=== PATIENT | female | born 1975 | race African-American/Black ===

== ENCOUNTER 2016-06-22 12:26 | Emergency (ER) | payer SELFPAY ==
[2016-06-22] MEDS ORDERED: ASPIRIN 81 MG TABLET, CHEWABLE PO ONE (13:08)
--- NOTE | 2016-06-22 13:17 | ER Document Report ---
ED Medical Screen (RME) - General Chief Complaint: Numbness Stated Complaint: CHEST PAIN Mode of Arrival: Ambulatory Information source: Patient Notes: 41 y/o F presents to ED c/o chest pain, headache, and numbness/tingling to bilateral arms. Reports symptoms started this morning while at [employer]. Denies vision changes, nausea or vomiting, or extremity weakness. I have greeted and performed a rapid initial assessment of this patient. A comprehensive ED assessment and evaluation of the patient, analysis of test results and completion of the medical decision making process will be conducted by additional ED providers. TRAVEL OUTSIDE OF THE [place] IN LAST 30 DAYS: No - Related Data Allergies/Adverse Reactions: codeine [Codeine] Allergy (Intermediate, Verified 06/22/16 13:11) Hives hydrocodone bitartrate [From Vicodin] Allergy (Intermediate, Verified 06/22/16 13:11) Dyspnea hydromorphone HCl [From Dilaudid] Allergy (Intermediate, Verified 06/22/16 13:11 ) Hives morphine [Morphine] Allergy (Intermediate, Verified 06/22/16 13:11) Hives oxycodone HCl [From Percocet] Allergy (Intermediate, Verified 06/22/16 13:11) Hives Shellfish * [Shellfish] Allergy (Unknown, Verified 06/22/16 13:11) Past Medical History - Social History Frequency of alcohol use: None Drug Abuse: None - Past Medical History Cardiac Medical History: Reports: Hx Hypertension Denies: Hx Coronary Artery Disease, Hx Heart Attack Pulmonary Medical History: Reports: Hx Asthma - seasonal Denies: Hx Bronchitis, Hx COPD, Hx Pneumonia Neurological Medical History: Reports: Hx Migraine. Denies: Hx Cerebrovascular Accident, Hx Seizures Endocrine Medical History: Reports: Hx Diabetes Mellitus Type 1, Hx Diabetes Mellitus Type 2 Renal/ Medical History: Denies: Hx Peritoneal Dialysis Musculoskeltal Medical History: Reports Hx Arthritis - RA both hips and knees Psychiatric Medical History: Denies: Hx Depression Past Surgical History: Reports: Hx Section - 2, Hx Cholecystectomy, Hx Gynecologic Surgery - novosure 2009, Hx Orthopedic Surgery - Right knee arthroscopy, Hx Tubal Ligation. 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
[2016-06-22 13:46] LABS: APPEARANCE,URINE SLIGHTLY-CLOUDY; BILIRUBIN,URINE NEGATIVE (NEGATIVE); GLUCOSE, URINE 50 mg/dL (NEGATIVE); KETONES,URINE TRACE mg/dL (NEGATIVE); LEUKOCYTE ESTERASE,URINE NEGATIVE (NEGATIVE); NITRITE,URINE NEGATIVE (NEGATIVE); PROTEIN,URINE >=500 mg/dL (NEGATIVE); URINE SPECIFIC GRAVITY 1.026; UROBILINOGEN,URINE NEGATIVE mg/dL (<2.0)
[2016-06-22 13:55] LABS: ABSOLUTE EOSINOPHILS # (AUTO) 0.1 10^3/uL (0.0-0.6); ABSOLUTE LYMPHOCYTES (AUTO) 2.8 10^3/uL (0.5-4.7); ABSOLUTE MONOCYTES (AUTO) 0.3 10^3/uL (0.1-1.4); ABSOLUTE NEUT (AUTO) 7.1 10^3/uL (1.7-8.2); BASOPHILS % (AUTO) 0.4 % (0-2); EOSINOPHILS % (AUTO) 1.4 % (0-6); HEMATOCRIT 38.5 % (36.0-47.0); HEMOGLOBIN 11.5 g/dL (12.0-15.5); LYMPHOCYTES % (AUTO) 26.5 % (13-45); MEAN CORPUSCULAR HEMOGLOBIN 21.3 pg (27.0-33.4); MEAN CORPUSCULAR VOLUME 71 fl (80-97); MONOCYTES % (AUTO) 3.1 % (3-13); RED BLOOD COUNT 5.43 10^6/uL (3.72-5.28); RED CELL DISTRIBUTION WIDTH 14.7 % (11.5-14.0); SEGMENTED NEUTROPHILS % (AUTO) 68.6 % (42-78); WHITE BLOOD COUNT 10.4 10^3/uL (4.0-10.5)
[2016-06-22 14:15] LABS: ALANINE AMINOTRANSFERASE 33 U/L (9-52); ALBUMIN 3.9 g/dL (3.5-5.0); ALKALINE PHOSPHATASE 111 U/L (38-126); ANION GAP 12 (5-19); ASPARTATE AMINO TRANSFERASE 28 U/L (14-36); BILIRUBIN,TOTAL 0.7 mg/dL (0.2-1.3); BLOOD UREA NITROGEN 12 mg/dL (7-20); CALCIUM 9.5 mg/dL (8.4-10.2); CARBON DIOXIDE 25 mmol/L (22-30); CHLORIDE 101 mmol/L (98-107); CREATINE KINASE 71 U/L (30-135); CREATININE RESULT 0.79 mg/dL (0.52-1.25); GLUCOSE 306 mg/dL (75-110); POTASSIUM 3.9 mmol/L (3.6-5.0); TOTAL PROTEIN 6.8 g/dL (6.3-8.2)
--- NOTE | 2016-06-22 14:29 | ER Document Report ---
ED General - General Chief Complaint: Chest Pain Stated Complaint: CHEST PAIN Mode of Arrival: Ambulatory Information source: Patient Notes: Patient presents to the emergency department with complaints of right shoulder right-sided chest pain that started yesterday. She reports she woke up to a a headache and a feeling of numbness and tingling to her right shoulder. She reports she had right-sided sharp chest pain and the center of her chest felt tight. She also reports she felt weak and nauseated. She reports diarrhea yesterday all day. She reports she's been eating drinking okay. She denies trauma. She denies fever and vomiting. Patient with history of high blood pressure asthma diabetes denies cardiac disease,obesity. TRAVEL OUTSIDE OF THE [place] IN LAST 30 DAYS: No - HPI Onset: Yesterday Onset/Duration: Sudden, Persistent Quality of pain: Achy, Sharp Severity: Severe Pain Level: 5 Associated symptoms: Diarrhea, Nausea Exacerbated by: Movement Relieved by: Denies Similar symptoms previously: No Recently seen / treated by doctor: No - Related Data Allergies/Adverse Reactions: codeine [Codeine] Allergy (Intermediate, Verified 06/22/16 13:11) Hives hydrocodone bitartrate [From Vicodin] Allergy (Intermediate, Verified 06/22/16 13:11) Dyspnea hydromorphone HCl [From Dilaudid] Allergy (Intermediate, Verified 06/22/16 13:11 ) Hives morphine [Morphine] Allergy (Intermediate, Verified 06/22/16 13:11) Hives oxycodone HCl [From Percocet] Allergy (Intermediate, Verified 06/22/16 13:11) Hives Shellfish * [Shellfish] Allergy (Unknown, Verified 06/22/16 13:11) Past Medical History - General Information source: Patient Last Menstrual Period: 05/31/16 - Social History Smoking Status: Never Smoker Frequency of alcohol use: None Drug Abuse: None Lives with: Family Family History: Reviewed & Not Pertinent Patient has suicidal ideation: No Patient has homicidal ideation: No - Past Medical History Cardiac Medical History: Reports: Hx Hypertension Denies: Hx Coronary Artery Disease, Hx Heart Attack Pulmonary Medical History: Reports: Hx Asthma - seasonal Denies: Hx Bronchitis, Hx COPD, Hx Pneumonia Neurological Medical History: Reports: Hx Migraine. Denies: Hx Cerebrovascular Accident, Hx Seizures Endocrine Medical History: Reports: Hx Diabetes Mellitus Type 1, Hx Diabetes Mellitus Type 2 Renal/ Medical History: Denies: Hx Peritoneal Dialysis Musculoskeltal Medical History: Reports Hx Arthritis - RA both hips and knees Psychiatric Medical History: Denies: Hx Depression Past Surgical History: Reports: Hx Section - 2, Hx Cholecystectomy, Hx Gynecologic Surgery - novosure 2010, Hx Orthopedic Surgery - Right knee arthroscopy, Hx Tubal Ligation. Denies: Hx Hysterectomy - Immunizations Immunizations up to date: Yes Hx Diphtheria, Pertussis, Tetanus Vaccination: Yes Hx Pneumococcal Vaccination: 03/01/12 Review of Systems - Review of Systems Notes: Review HPI for review of systems., All other systems negative Physical Exam - Vital signs Vitals: Temp Pulse Resp BP Pulse Ox 98.0 F 102 H 19 151/85 H 98 06/22/16 12:51 06/22/16 12:51 06/22/16 12:51 06/22/16 12:51 06/22/16 12:51 - Notes Notes: PHYSICAL EXAMINATION: GENERAL: Well-appearing and in no acute distress nontoxic looking HEAD: Atraumatic, normocephalic. EYES: Pupils equal round extraocular movements intact, sclera anicteric, conjunctiva are normal. ENT: nares patent, oropharynx clear without exudates. Moist mucous membranes. NECK: Normal range of motion, supple without lymphadenopathy LUNGS: CTAB and equal. No wheezes rales or rhonchi. HEART: Regular rate and rhythm without murmurs denies chest wall ttp on right side, denies left side cp ABDOMEN: Soft, no tenderness. No guarding, no rebound BACK: C/O Right trapezius ttp right side down to midback, no obvious deformity, no swelling/warmth EXTREMITIES: Normal range of motion, no pitting edema. No cyanosis. right shoulder ac area ttp, no erythema,no swelling, no obvious deformity NEUROLOGICAL: Cranial nerves grossly intact. Normal sensory/motor exams. PSYCH: Normal mood, normal affect. SKIN: Warm, Dry, normal turgor, no rashes or lesions noted Course - Re-evaluation Re-evalutation: 06/22/16 17:32 I have consulted the attending provider dr gamez per [facility] guidelines. Patient feels good. Reports shoulder feels much better. Denies chest pain denies shortness of breath. Patient does not history of PE or DVTs. Patient will be discharged home with pain medication and follow-up with Dr. Flowers tomorrow. Presentation of right side chest pain ttp, right side trapezius ttp, No recent trip, no hx of DVT/PE. Chest x-ray without evidence of pneumothorax or pneumonia. No widened mediastinum. Inferior dissection also seems unlikely given history, symmetric pulses, chest x-ray and vitals. Given the reassuring evaluation, will plan for discharge home at this time with return precautions and follow-up recommendations. Patient has been instructed to return if symptoms worsen or change in any way. Patient plans follow-up with Dr. Flowers tomorrow. - Vital Signs Vital signs: Temp Pulse Resp BP Pulse Ox 98.1 F 102 H 16 146/87 H 100 06/22/16 17:49 06/22/16 12:51 06/22/16 17:29 06/22/16 17:29 06/22/16 17:29 - Laboratory Result Diagrams: 06/22/16 13:18 06/22/16 13:18 Laboratory results interpreted by me: 06/22/16 06/22/16 06/22/16 13:18 13:18 13:18 RBC 5.43 H Hgb 11.5 L MCV 71 L MCH 21.3 L MCHC 30.0 L RDW 14.7 H Glucose 306 H Urine Protein >=500 H Urine Glucose (UA) 50 H Urine Ketones TRACE H - Diagnostic Test Radiology reviewed: Image reviewed, Reports reviewed - Negative for acute injury - EKG Interpretation by Me Rate: Tachycardia Discharge - Discharge Clinical Impression: chest wall pain, elevated blood pressure, RIght side trapezius pain Condition: Stable Disposition: HOME, SELF-CARE Instructions: Chest Wall Pain ([facility]), Oral Narcotic Medication ([facility]), Upper Back Strain ([facility]) Additional Instructions: *You have been evaluated for chest wall pain, trapezius pain, elevated blood pressure *Take Benadryl as indicated *Take medication as prescribed *Follow up with a primary care provider tomorrow *Return to ED for worsening condition, changes, needs, chest pain, shortness of breath Prescriptions: Oxycodone HCl/Acetaminophen [Percocet 5-325 mg Tablet] 1 tab PO ASDIR PRN #15 tablet PRN Reason: Forms: Return to Work
[2016-06-22 14:32] LABS: CREATINE KINASE MB 0.97 ng/mL (<4.55); TROPONIN I < 0.012 ng/mL
[2016-06-22] MEDS ORDERED: DIPHENHYDRAMINE HCL 25 MG CAPSULE PO ONE (15:42)
[2016-06-22] MEDS ORDERED: OXYCODONE-ACETAMINOPHEN 5-325 MG TABLET PO ONE (15:42)
[2016-06-22] MEDS ORDERED: METFORMIN HCL 500 MG TABLET PO ONE (17:17)
[2016-06-22 17:31] VITALS: BP 146/87
--- NOTE | 2016-06-22 20:36 | EKG REPORT ---
SEVERITY:- BORDERLINE ECG - SINUS TACHYCARDIA BORDERLINE R WAVE PROGRESSION, ANTERIOR LEADS BORDERLINE T ABNORMALITIES, DIFFUSE LEADS : Confirmed by: Quique Bustamante MD 22-Jun-2016 20:35:30
== END 2016-06-22 17:49 | disposition home or self-care (01) ==
LOC: ER 12:26
DX: R07.89 Other chest pain (principal); M79.1 Myalgia; I10 Essential (primary) hypertension; R51 Headache; R20.0 Anesthesia of skin; R53.1 Weakness; R11.0 Nausea; R19.7 Diarrhea, unspecified; J45.909 Unspecified asthma, uncomplicated; E11.9 Type 2 diabetes mellitus without complications; Z88.5 Allergy status to narcotic agent; Z91.013 Allergy to seafood
CPT/HCPCS: 36415; 71020; 80053; 81001; 82550; 82553; 84484; 84703; 85025; 93005; 93010; 99285

== ENCOUNTER 2016-08-05 20:50 | Emergency (ER) | payer OTHER ==
--- NOTE | 2016-08-05 21:28 | ER Document Report ---
ED Medical Screen (RME) - General Stated Complaint: VOMITING DIZZY Time seen by provider: 21:23 Mode of Arrival: Ambulatory Information source: Patient Notes: 41-year-old type II diabetic female complaining of nosebleeds when she blows her nose since Thursday. She started getting vertigo yesterday, vomited 4 times, and Thursday/Thursday felt like her body got really hot. No anticoagulants. LMP . I have greeted and performed a rapid initial assessment of this patient. A comprehensive ED assessment, evaluation of the patient, analysis of test results , and completion of the medical decision making process will be conducted by additional ED providers. TRAVEL OUTSIDE OF THE [place] IN LAST 30 DAYS: No - Related Data Allergies/Adverse Reactions: codeine [Codeine] Allergy (Intermediate, Verified 06/22/16 13:11) Hives hydrocodone bitartrate [From Vicodin] Allergy (Intermediate, Verified 06/22/16 13:11) Dyspnea hydromorphone HCl [From Dilaudid] Allergy (Intermediate, Verified 06/22/16 13:11 ) Hives morphine [Morphine] Allergy (Intermediate, Verified 06/22/16 13:11) Hives oxycodone HCl [From Percocet] Allergy (Intermediate, Verified 06/22/16 13:11) Hives Shellfish * [Shellfish] Allergy (Unknown, Verified 06/22/16 13:11) Past Medical History - Past Medical History Cardiac Medical History: Reports: Hx Hypertension Denies: Hx Coronary Artery Disease, Hx Heart Attack Pulmonary Medical History: Reports: Hx Asthma - seasonal Denies: Hx Bronchitis, Hx COPD, Hx Pneumonia Neurological Medical History: Reports: Hx Migraine. Denies: Hx Cerebrovascular Accident, Hx Seizures Endocrine Medical History: Reports: Hx Diabetes Mellitus Type 1, Hx Diabetes Mellitus Type 2 Renal/ Medical History: Denies: Hx Peritoneal Dialysis Musculoskeltal Medical History: Reports Hx Arthritis - RA both hips and knees Psychiatric Medical History: Denies: Hx Depression Past Surgical History: Reports: Hx Section - 2, Hx Cholecystectomy, Hx Gynecologic Surgery - novosure 2009, Hx Orthopedic Surgery - Right knee arthroscopy, Hx Tubal Ligation. Denies: Hx Hysterectomy - Immunizations Immunizations up to date: Yes Hx Diphtheria, Pertussis, Tetanus Vaccination: Yes Physical Exam - Vital signs Vitals: Temp Pulse Resp BP Pulse Ox 98.0 F 96 18 170/82 H 100 08/05/16 21:13 08/05/16 21:13 08/05/16 21:13 08/05/16 21:13 08/05/16 21:13 Course - Vital Signs Vital signs: Temp Pulse Resp BP Pulse Ox 98.0 F 96 18 170/82 H 100 08/05/16 21:13 08/05/16 21:13 08/05/16 21:13 08/05/16 21:13 08/05/16 21:13
[2016-08-05] MEDS ORDERED: MECLIZINE HCL 25 MG TABLET PO ONE (21:29)
[2016-08-05 21:49] LABS: ABSOLUTE EOSINOPHILS # (AUTO) 0.1 10^3/uL (0.0-0.6); ABSOLUTE MONOCYTES (AUTO) 0.6 10^3/uL (0.1-1.4); ABSOLUTE NEUT (AUTO) 7.9 10^3/uL (1.7-8.2); BASOPHILS % (AUTO) 0.4 % (0-2); EOSINOPHILS % (AUTO) 1.3 % (0-6); HEMATOCRIT 35.9 % (36.0-47.0); HEMOGLOBIN 11.3 g/dL (12.0-15.5); LYMPHOCYTES % (AUTO) 25.9 % (13-45); MEAN CORPUSCULAR HEMOGLOBIN 21.7 pg (27.0-33.4); MEAN CORPUSCULAR HGB CONC 31.4 g/dL (32.0-36.0); MEAN CORPUSCULAR VOLUME 69 fl (80-97); MONOCYTES % (AUTO) 4.8 % (3-13); RED BLOOD COUNT 5.19 10^6/uL (3.72-5.28); RED CELL DISTRIBUTION WIDTH 13.6 % (11.5-14.0); SEGMENTED NEUTROPHILS % (AUTO) 67.6 % (42-78); WHITE BLOOD COUNT 11.7 10^3/uL (4.0-10.5)
[2016-08-05 21:55] LABS: PARTIAL THROMBOPLASTIN TIME 28.3 SEC (23.5-35.8); PROTHROMBIN TIME 12.3 SEC (11.4-15.4)
[2016-08-05 22:09] LABS: ALANINE AMINOTRANSFERASE 28 U/L (9-52); ALBUMIN 3.9 g/dL (3.5-5.0); ALKALINE PHOSPHATASE 128 U/L (38-126); ANION GAP 12 (5-19); ASPARTATE AMINO TRANSFERASE 22 U/L (14-36); BILIRUBIN,TOTAL 0.6 mg/dL (0.2-1.3); BLOOD UREA NITROGEN 12 mg/dL (7-20); CALCIUM 9.5 mg/dL (8.4-10.2); CARBON DIOXIDE 25 mmol/L (22-30); CHLORIDE 96 mmol/L (98-107); CREATININE RESULT 0.78 mg/dL (0.52-1.25); POTASSIUM 4.8 mmol/L (3.6-5.0); SODIUM 133.2 mmol/L (137-145); TOTAL PROTEIN 6.9 g/dL (6.3-8.2)
[2016-08-05 22:18] LABS: GLUCOSE 425 mg/dL (75-110)
[2016-08-06] MEDS ORDERED: INSULIN LISPRO 100 UNIT/ML 3 ML VIAL SUBCUT ONE (00:09)
[2016-08-06] MEDS ORDERED: OXYMETAZOLINE HCL 0.05% NASAL SPRAY 15 ML BOTTLE NASL ONE (01:09)
--- NOTE | 2016-08-06 01:13 | ER Document Report ---
ED General - General Chief Complaint: Dizziness Stated Complaint: VOMITING DIZZY Mode of Arrival: Ambulatory Notes: Patient is a 41-year-old female with past medical history of poorly controlled diabetes, hypertension, morbid obesity who presents with complaints of 3 days of intermittent epistaxis as well as bilateral sinus pressure. She notes she's also had multiple episodes of nonbilious, nonbloody vomiting particularly after episodes of epistaxis. She is not currently having a nosebleed at time of presentation. She has not tried anything to treat her symptoms and has not noted anything worsen her symptoms. She does not use anticoagulation. She denies a history of similar symptoms in the past. She has not seen her primary care physician regarding today's concerns. Her symptoms have been relatively unchanged since onset. TRAVEL OUTSIDE OF THE [place] IN LAST 30 DAYS: No - Related Data Allergies/Adverse Reactions: codeine [Codeine] Allergy (Intermediate, Verified 06/22/16 13:11) Hives hydrocodone bitartrate [From Vicodin] Allergy (Intermediate, Verified 06/22/16 13:11) Dyspnea hydromorphone HCl [From Dilaudid] Allergy (Intermediate, Verified 06/22/16 13:11 ) Hives morphine [Morphine] Allergy (Intermediate, Verified 06/22/16 13:11) Hives oxycodone HCl [From Percocet] Allergy (Intermediate, Verified 06/22/16 13:11) Hives Shellfish * [Shellfish] Allergy (Unknown, Verified 06/22/16 13:11) Past Medical History - General Information source: Patient - Social History Smoking Status: Never Smoker Chew tobacco use (# tins/day): No Frequency of alcohol use: None Drug Abuse: None Lives with: Spouse/Significant other Family History: Reviewed & Not Pertinent Patient has suicidal ideation: No Patient has homicidal ideation: No - Past Medical History Cardiac Medical History: Reports: Hx Hypertension Denies: Hx Coronary Artery Disease, Hx Heart Attack Pulmonary Medical History: Reports: Hx Asthma - seasonal Denies: Hx Bronchitis, Hx COPD, Hx Pneumonia Neurological Medical History: Reports: Hx Migraine. Denies: Hx Cerebrovascular Accident, Hx Seizures Endocrine Medical History: Reports: Hx Diabetes Mellitus Type 1, Hx Diabetes Mellitus Type 2 Renal/ Medical History: Denies: Hx Peritoneal Dialysis Musculoskeltal Medical History: Reports Hx Arthritis - RA both hips and knees Psychiatric Medical History: Denies: Hx Depression Past Surgical History: Reports: Hx Section - 2, Hx Cholecystectomy, Hx Gynecologic Surgery - novosure 2010, Hx Orthopedic Surgery - Right knee arthroscopy, Hx Tubal Ligation. Denies: Hx Hysterectomy - Immunizations Immunizations up to date: Yes Hx Diphtheria, Pertussis, Tetanus Vaccination: Yes Hx Pneumococcal Vaccination: 03/01/12 Review of Systems - Review of Systems Notes: Constitutional: Negative for fever. HENT: Negative for sore throat. Positive for epistaxis Eyes: Negative for visual changes. Cardiovascular: Negative for chest pain. Respiratory: Negative for shortness of breath. Gastrointestinal: Negative for abdominal pain, positive for vomiting Genitourinary: Negative for dysuria. Musculoskeletal: Negative for back pain. Skin: Negative for rash. Neurological: Negative for headaches, weakness or numbness. 10 point ROS negative except as marked above and in HPI. Physical Exam - Vital signs Vitals: Temp Pulse Resp BP Pulse Ox 98.0 F 96 18 170/82 H 100 08/05/16 21:13 08/05/16 21:13 08/05/16 21:13 08/05/16 21:13 08/05/16 21:13 Interpretation: Hypertensive Notes: PHYSICAL EXAMINATION: GENERAL: Well-appearing, well-nourished and in no acute distress. HEAD: Atraumatic, normocephalic. EYES: Pupils equal round and reactive to light, extraocular movements intact, sclera anicteric, conjunctiva are normal. ENT: nares patent, oropharynx clear without exudates. Moist mucous membranes. NECK: Normal range of motion, supple without lymphadenopathy LUNGS: Breath sounds clear to auscultation bilaterally and equal. No wheezes rales or rhonchi. HEART: Regular rate and rhythm without murmurs ABDOMEN: Soft, nontender, normoactive bowel sounds. No guarding, no rebound. No masses appreciated. EXTREMITIES: Normal range of motion, no pitting or edema. No cyanosis. NEUROLOGICAL: No focal neurological deficits. Moves all extremities spontaneously and on command. PSYCH: Normal mood, normal affect. SKIN: Warm, Dry, normal turgor, no rashes or lesions noted. Course - Re-evaluation Re-evalutation: 08/06/16 01:10 Patient presents with concerns of intermittent nosebleed, sinus congestion, and several episodes of vomiting over the last 3 days. Patient is very well in appearance, no acute distress. Vitals at time of triage show patient's baseline hypertension but otherwise unremarkable. Her CBC shows that her hemoglobin is at her baseline. Chemistry obtained in triage demonstrates hyperglycemia without evidence of diabetic ketoacidosis and likewise is very similar to patient's blood glucose when she comes to the emergency department on prior occasions. Her physical examination is unremarkable without any significant nasal turbinate erythema. There is no active nosebleed at this time. The oropharynx is clear. Suspect the patient's intermittent nosebleeds may be due to the weather versus her recent sinus infection and I suspect her vomiting is due to swallowing blood as she states that her vomiting typically occurs after an episode of a nosebleed. Her abdominal exam is completely benign without any focal tenderness rebound or guarding. I do not suspect an acute bowel obstruction, mesenteric ischemia, pancreatitis, or biliary pathology based on her exam and history. She will be given a bottle oxymetazoline to use at home as needed for feelings of sinus congestion and intermittent small amounts of bleeding. At this time will discharge with return precautions and follow-up recommendations. Verbal discharge instructions given a the bedside and opportunity for questions given. Medication warnings reviewed. Patient is in agreement with this plan and has verbalized understanding of return precautions and the need for primary care follow-up in the next 24-72 hours. - Vital Signs Vital signs: Temp Pulse Resp BP Pulse Ox 97.6 F 90 16 147/83 H 100 08/06/16 01:38 08/06/16 01:38 08/06/16 01:38 08/06/16 01:38 08/06/16 01:38 - Laboratory Result Diagrams: 08/05/16 21:30 08/05/16 21:30 Laboratory results interpreted by me: 08/05/16 08/05/16 08/06/16 21:30 21:30 01:31 WBC 11.7 H Hgb 11.3 L Hct 35.9 L MCV 69 L MCH 21.7 L MCHC 31.4 L Sodium 133.2 L Chloride 96 L Glucose 425 H* POC Glucose 377 H Alkaline Phosphatase 128 H Discharge - Discharge Clinical Impression: Poorly controlled diabetes mellitus, Epistaxis, recurrent HTN (hypertension) Qualifiers: Hypertension type: essential hypertension Qualified Code(s): I10 - Essential ( primary) hypertension Condition: Good Disposition: HOME, SELF-CARE Additional Instructions: Please follow-up with your primary care doctor regarding her blood sugars as well as her blood pressure is both were elevated today. Use the oxymetazoline nasal spray that she were sent home with as needed for a nosebleed and sinus congestion. Please do not use for more than 3 days.Please return to the emergency room immediately if you experience any concerning symptoms including high fevers, severe headache, chest pain, difficulty breathing, abdominal pain, slurred speech, numbness or weakness in your arms or legs, or any other symptom that concerns you. Forms: Return to Work Referrals: CAROLYN CHANG MD [Primary Care Provider] - Follow up in 3-5 days
[2016-08-06 01:38] VITALS: BP 147/83
== END 2016-08-06 01:38 | disposition home or self-care (01) ==
LOC: ER 20:50
DX: E11.65 Type 2 diabetes mellitus with hyperglycemia (principal); R04.0 Epistaxis; I10 Essential (primary) hypertension; E66.01 Morbid (severe) obesity due to excess calories; Z68.41 Body mass index [BMI] 40.0-44.9, adult; R11.10 Vomiting, unspecified; J45.909 Unspecified asthma, uncomplicated; R09.81 Nasal congestion; Z88.5 Allergy status to narcotic agent; Z91.013 Allergy to seafood
CPT/HCPCS: 99284; 36415; 82962; 84703; 85025; 85610; 85730; 80053; J3490

== ENCOUNTER 2016-09-02 18:34 | Emergency (ER) | payer OTHER ==
--- NOTE | 2016-09-02 19:50 | ER Document Report ---
ED Medical Screen (RME) - General Mode of Arrival: Ambulatory Information source: Patient TRAVEL OUTSIDE OF THE [place] IN LAST 30 DAYS: No - HPI Patient complains to provider of: Left leg pain and swelling Onset: Other - "couple weeks ago" Associated Symptoms: Other - see notes above <ANGELA LASSITER - Last Filed: 09/02/16 20:12> <MARILIN ZEE - Last Filed: 09/02/16 20:28> - General Chief Complaint: Leg Swelling Stated Complaint: LEFT LEG PROBLEMS Notes: 41 year old female with history of diabetes type II presents to the ED complaining of left leg "burning" pain and swelling that started "a couple weeks ago." Patient reports that the pain and swelling started out as a small "black" dot and has progressively gotten worse. Patient denies hitting her leg on anything or any new medications. Patient's primary care provider is Dr. Flowers. (ANGELA LASSITER) - Related Data Allergies/Adverse Reactions: codeine [Codeine] Allergy (Intermediate, Verified 09/02/16 19:43) Hives hydrocodone bitartrate [From Vicodin] Allergy (Intermediate, Verified 09/02/16 19:43) Dyspnea hydromorphone HCl [From Dilaudid] Allergy (Intermediate, Verified 09/02/16 19:43 ) Hives morphine [Morphine] Allergy (Intermediate, Verified 09/02/16 19:43) Hives oxycodone HCl [From Percocet] Allergy (Intermediate, Verified 09/02/16 19:43) Hives Shellfish * [Shellfish] Allergy (Unknown, Verified 09/02/16 19:43) Past Medical History - General Information source: Patient - Past Medical History Cardiac Medical History: Reports: Hx Hypertension Pulmonary Medical History: Reports: Hx Asthma - seasonal Neurological Medical History: Reports: Hx Migraine Endocrine Medical History: Reports: Hx Diabetes Mellitus Type 1, Hx Diabetes Mellitus Type 2 Renal/ Medical History: Denies: Hx Peritoneal Dialysis Musculoskeltal Medical History: Reports Hx Arthritis - RA both hips and knees Past Surgical History: Reports: Hx Section - 2, Hx Cholecystectomy, Hx Gynecologic Surgery - novosure 2010, Hx Orthopedic Surgery - Right knee arthroscopy, Hx Tubal Ligation - Immunizations Immunizations up to date: Yes Hx Diphtheria, Pertussis, Tetanus Vaccination: Yes <ANGELA LASSITER - Last Filed: 09/02/16 20:12> Review of Systems - Review of Systems Constitutional: No symptoms reported EENT: No symptoms reported Cardiovascular: No symptoms reported Respiratory: No symptoms reported Gastrointestinal: No symptoms reported Genitourinary: No symptoms reported Female Genitourinary: No symptoms reported Musculoskeletal: See HPI, Other - left leg pain and swelling Skin: No symptoms reported Hematologic/Lymphatic: No symptoms reported Neurological/Psychological: No symptoms reported -: Yes All other systems reviewed and negative <PATTI LASSITERUR - Last Filed: 09/02/16 20:12> Physical Exam - General General appearance: Alert In distress: None - Respiratory Respiratory status: No respiratory distress - Extremities General upper extremity: Normal inspection, Normal ROM General lower extremity: Normal ROM. No: Normal inspection - see leg calf exam below Calf: Tender - mild tenderness to palpation of the left calf, Other - Left leg swelling with mild erythema on the lateral aspect.. No: Normal <LASSITERANGELA - Last Filed: 09/02/16 20:12> Course - Laboratory Result Diagrams: 09/02/16 19:55 09/02/16 19:55 <LASSITERANGELA - Last Filed: 09/02/16 20:12> - Laboratory Result Diagrams: 09/02/16 19:55 09/02/16 19:55 <MARILIN ZEE - Last Filed: 09/02/16 20:28> - Re-evaluation Re-evalutation: 09/02/16 20:28 I personally performed the services described in the documentation, reviewed and edited the documentation which was dictated to the scribe in my presence, and it accurately records my words and actions. (MARILIN ZEE) - Vital Signs Vital signs: Temp Pulse Resp BP Pulse Ox 98.3 F 95 18 187/95 H 99 09/02/16 18:41 09/02/16 18:41 09/02/16 18:41 09/02/16 18:41 09/02/16 18:41 - Laboratory Laboratory results interpreted by me: 09/02/16 19:55 WBC 11.5 H Hgb 10.4 L Hct 34.1 L MCV 70 L MCH 21.3 L MCHC 30.6 L Scribe Documentation - Scribe Written by Flor:: Flor Bourne, 09/02/2016 2020 acting as scribe for :: Solo <ANGELA LASSITER - Last Filed: 09/02/16 20:12>
[2016-09-02 20:08] LABS: ABSOLUTE EOSINOPHILS # (AUTO) 0.2 10^3/uL (0.0-0.6); ABSOLUTE LYMPHOCYTES (AUTO) 3.5 10^3/uL (0.5-4.7); ABSOLUTE MONOCYTES (AUTO) 0.5 10^3/uL (0.1-1.4); ABSOLUTE NEUT (AUTO) 7.3 10^3/uL (1.7-8.2); BASOPHILS % (AUTO) 0.3 % (0-2); EOSINOPHILS % (AUTO) 1.6 % (0-6); HEMATOCRIT 34.1 % (36.0-47.0); HEMOGLOBIN 10.4 g/dL (12.0-15.5); HGB HCT DIFFERENCE -2.9; LYMPHOCYTES % (AUTO) 30.2 % (13-45); MEAN CORPUSCULAR HEMOGLOBIN 21.3 pg (27.0-33.4); MEAN CORPUSCULAR HGB CONC 30.6 g/dL (32.0-36.0); MEAN CORPUSCULAR VOLUME 70 fl (80-97); MONOCYTES % (AUTO) 4.1 % (3-13); RED BLOOD COUNT 4.91 10^6/uL (3.72-5.28); RED CELL DISTRIBUTION WIDTH 13.8 % (11.5-14.0); SEGMENTED NEUTROPHILS % (AUTO) 63.8 % (42-78); WHITE BLOOD COUNT 11.5 10^3/uL (4.0-10.5)
[2016-09-02] MEDS ORDERED: CARISOPRODOL 350 MG TABLET PO ONE (20:19)
[2016-09-02 20:28] LABS: ANION GAP 13 (5-19); BLOOD UREA NITROGEN 13 mg/dL (7-20); C-REACTIVE PROTEIN 19.5 mg/L (<10.0); CARBON DIOXIDE 24 mmol/L (22-30); CHLORIDE 102 mmol/L (98-107); CREATININE RESULT 0.72 mg/dL (0.52-1.25); SODIUM 138.6 mmol/L (137-145)
[2016-09-02 20:36] LABS: CALCIUM 9.4 mg/dL (8.4-10.2); GLUCOSE 199 mg/dL (75-110); POTASSIUM 4.2 mmol/L (3.6-5.0)
[2016-09-02 20:44] LABS: ERYTHROCYTE SEDIMENTATION RATE 39 mm/hr (0-20)
[2016-09-03] MEDS ORDERED: CARISOPRODOL 350 MG TABLET PO ONE (00:15)
[2016-09-03] MEDS ORDERED: OXYCODONE-ACETAMINOPHEN 5-325 MG TABLET PO ONE (00:51)
[2016-09-03] MEDS ORDERED: DIPHENHYDRAMINE HCL 25 MG CAPSULE PO ONE (00:51)
[2016-09-03] MEDS ORDERED: CEPHALEXIN 500 MG CAPSULE PO ONE (01:15)
--- NOTE | 2016-09-03 01:16 | ER Document Report ---
ED General - General Chief Complaint: Leg Swelling Stated Complaint: LEFT LEG PROBLEMS Mode of Arrival: Ambulatory Information source: Patient Notes: Patient presents to the emergency department with left lower leg swelling erythema and pain. She reports symptoms for the past 3 weeks. She reports pain turned into burning today. Patient is a diabetic with a past medical history of DVT. She denies trauma to the area. She reports she noted a dark spot to the leg approximately 2 weeks ago and then just recently started turning red. She denies fever vomiting diarrhea. She reports the leg is very painful. She reports when she wakes up after sleeping all night the leg is not as swollen. After she supple date the leg swells more. TRAVEL OUTSIDE OF THE [place] IN LAST 30 DAYS: No - HPI Onset: Other - 3 weeks Onset/Duration: Persistent Quality of pain: Achy, Burning Severity: Severe Pain Level: 5 Associated symptoms: Leg swelling Exacerbated by: Denies Relieved by: Other - better after sleep Similar symptoms previously: Yes Recently seen / treated by doctor: No - Related Data Allergies/Adverse Reactions: codeine [Codeine] Allergy (Intermediate, Verified 09/02/16 19:43) Hives hydrocodone bitartrate [From Vicodin] Allergy (Intermediate, Verified 09/02/16 19:43) Dyspnea hydromorphone HCl [From Dilaudid] Allergy (Intermediate, Verified 09/02/16 19:43 ) Hives morphine [Morphine] Allergy (Intermediate, Verified 09/02/16 19:43) Hives oxycodone HCl [From Percocet] Allergy (Intermediate, Verified 09/02/16 19:43) Hives Shellfish * [Shellfish] Allergy (Unknown, Verified 09/02/16 19:43) Past Medical History - General Information source: Patient Last Menstrual Period: 08/04/16 - Social History Smoking Status: Unknown if Ever Smoked Chew tobacco use (# tins/day): No Frequency of alcohol use: Rare Drug Abuse: None Occupation: bank Lives with: Family Family History: Reviewed & Not Pertinent Patient has suicidal ideation: No Patient has homicidal ideation: No - Past Medical History Cardiac Medical History: Reports: Hx Hypertension Denies: Hx Coronary Artery Disease, Hx Heart Attack Pulmonary Medical History: Reports: Hx Asthma - seasonal Denies: Hx Bronchitis, Hx COPD, Hx Pneumonia Neurological Medical History: Reports: Hx Migraine. Denies: Hx Cerebrovascular Accident, Hx Seizures Endocrine Medical History: Reports: Hx Diabetes Mellitus Type 1, Hx Diabetes Mellitus Type 2 Renal/ Medical History: Denies: Hx Peritoneal Dialysis Musculoskeltal Medical History: Reports Hx Arthritis - RA both hips and knees Psychiatric Medical History: Denies: Hx Depression Past Surgical History: Reports: Hx Section - 2, Hx Cholecystectomy, Hx Gynecologic Surgery - novosure 2010, Hx Orthopedic Surgery - Right knee arthroscopy, Hx Tubal Ligation. Denies: Hx Hysterectomy - Immunizations Immunizations up to date: Yes Hx Diphtheria, Pertussis, Tetanus Vaccination: Yes Hx Pneumococcal Vaccination: 03/01/12 Review of Systems - Review of Systems Notes: Review HPI for review of systems., All other systems negative Physical Exam - Vital signs Vitals: Temp Pulse Resp BP Pulse Ox 98.3 F 95 18 187/95 H 99 09/02/16 18:41 09/02/16 18:41 09/02/16 18:41 09/02/16 18:41 09/02/16 18:41 - Notes Notes: PHYSICAL EXAMINATION: GENERAL: Well-appearing and in no acute distress HEAD: Atraumatic, normocephalic. EYES: Pupils equal round and reactive to light, extraocular movements intact, sclera anicteric, conjunctiva are normal. ENT: nares patent, oropharynx clear without exudates. Moist mucous membranes. NECK: Normal range of motion, supple without lymphadenopathy LUNGS: CTAB and equal. No wheezes rales or rhonchi. HEART: Regular rate and rhythm without murmurs ABDOMEN: Soft, no tenderness. No guarding, no rebound EXTREMITIES: Normal range of motion, LLL swelling, tight, erythema anterior, + pedal pulse, + popliteal pulse NEUROLOGICAL: Cranial nerves grossly intact. Normal sensory/motor exams. PSYCH: Normal mood, normal affect. SKIN: Warm, Dry, normal turgor, no rashes or lesions noted - Abdominal Adult front & back diagram: 1 - +erythema, no open sores/wounds 2 - leg swelling, tight Course - Re-evaluation Re-evalutation: 09/03/16 Patient was instructed on negative DVT. ESR 39 CRP 19.5 minimal leukocytosis. Patient will be treated for cellulitis. She was instructed on the importance of taking medication. She was instructed on importance of monitoring leg and return to the emergency department for any concerns worsening symptoms increasing leg pain. She verbalized understanding. - Vital Signs Vital signs: Temp Pulse Resp BP Pulse Ox 98.3 F 90 16 174/90 H 99 09/02/16 18:41 09/03/16 01:49 09/03/16 01:49 09/03/16 01:49 09/03/16 01:49 - Laboratory Result Diagrams: 09/02/16 19:55 09/02/16 19:55 Laboratory results interpreted by me: 09/02/16 09/02/16 09/03/16 19:55 19:55 00:28 WBC 11.5 H Hgb 10.4 L Hct 34.1 L MCV 70 L MCH 21.3 L MCHC 30.6 L ESR 39 H Glucose 199 H C-Reactive Protein 19.5 H Urine Protein 100 H Urine Blood SMALL H - Diagnostic Test Radiology reviewed: Image reviewed, Reports reviewed - CARDIO /VENOUS UNILATERAL LOWER IMPRESSION: NO EVIDENCE DVT OR SVT IN THE LEFT LEG Discharge - Discharge Clinical Impression: Cellulitis of left lower leg, Elevated blood pressure reading Condition: Stable Disposition: HOME, SELF-CARE Instructions: Cellulitis ([facility]), Clindamycin ([facility]), Oral Narcotic Medication ( [facility]) Additional Instructions: *You have been evaluated for left lower leg cellulitis *Monitor your leg for increased swelling, warmth, redness *Monitor your temperature *Rest/ Elevate your leg *Follow up with Dr Chang this week *Take medication as prescribed *Return to ED for worsening condition, changes, needs Monitor your blood pressure. Your blood pressure was elevated today. This may be because you were anxious, in pain or because you need medication. It is important to follow up with your primary care provider for full evaluation. Prescriptions: Clindamycin HCl 300 mg PO QID #20 capsule Oxycodone HCl/Acetaminophen [Percocet 5-325 mg Tablet] 1 - 2 tab PO ASDIR PRN # 15 tablet PRN Reason: Forms: Elevated Blood Pressure, Return to Work Referrals: CAROLYN CHANG MD [Primary Care Provider] - Follow up in 3-5 days
[2016-09-03] MEDS ORDERED: CLINDAMYCIN HCL 150 MG CAPSULE PO ONE (01:25)
[2016-09-03 01:50] VITALS: BP 174/90
[2016-09-03 02:04] LABS: APPEARANCE,URINE CLEAR; BILIRUBIN,URINE NEGATIVE (NEGATIVE); GLUCOSE, URINE NEGATIVE (NEGATIVE); KETONES,URINE NEGATIVE (NEGATIVE); LEUKOCYTE ESTERASE,URINE NEGATIVE (NEGATIVE); NITRITE,URINE NEGATIVE (NEGATIVE); PROTEIN,URINE 100 mg/dL (NEGATIVE); URINE SPECIFIC GRAVITY 1.009; UROBILINOGEN,URINE NEGATIVE mg/dL (<2.0)
== END 2016-09-03 01:50 | disposition home or self-care (01) ==
LOC: ER 18:34
DX: L03.116 Cellulitis of left lower limb (principal); R03.0 Elevated blood-pressure reading, without diagnosis of hypertension; M79.89 Other specified soft tissue disorders; E11.9 Type 2 diabetes mellitus without complications
CPT/HCPCS: 99284; 36415; 85025; 85652; 86140; 80048; 81001; 93971; J3490

== ENCOUNTER 2017-01-29 14:49 | Emergency (ER) | payer OTHER ==
[2017-01-29] MEDS ORDERED: NORMAL SALINE 1000 ML 1,000 ML IV PRN (15:42)
--- NOTE | 2017-01-29 15:44 | ER Document Report ---
ED Medical Screen (RME) - General Chief Complaint: Abdominal Pain Stated Complaint: UPPER ABDOMINAL PAIN/VOMITING Time Seen by Provider: 01/29/17 15:42 Mode of Arrival: Ambulatory Information source: Patient Notes: This is a 42-year-old female with a history of diabetes that presents to the emergency room with nausea, vomiting and upper abdominal pain. Patient states she was Usual state of health until shortly after starting the lunch. she states she started getting upper abdominal, discomfort followed by nausea and vomiting. TRAVEL OUTSIDE OF THE [place] IN LAST 30 DAYS: No - Related Data Allergies/Adverse Reactions: codeine [Codeine] Allergy (Intermediate, Verified 01/29/17 14:55) Hives hydrocodone bitartrate [From Vicodin] Allergy (Intermediate, Verified 01/29/17 14:55) Dyspnea hydromorphone HCl [From Dilaudid] Allergy (Intermediate, Verified 01/29/17 14:55 ) Hives morphine [Morphine] Allergy (Intermediate, Verified 01/29/17 14:55) Hives oxycodone HCl [From Percocet] Allergy (Intermediate, Verified 01/29/17 14:55) Hives Shellfish * [Shellfish] Allergy (Unknown, Verified 01/29/17 14:55) Past Medical History - Past Medical History Cardiac Medical History: Reports: Hx Hypertension Denies: Hx Coronary Artery Disease, Hx Heart Attack Pulmonary Medical History: Reports: Hx Asthma - seasonal Denies: Hx Bronchitis, Hx COPD, Hx Pneumonia Neurological Medical History: Reports: Hx Migraine. Denies: Hx Cerebrovascular Accident, Hx Seizures Endocrine Medical History: Reports: Hx Diabetes Mellitus Type 1, Hx Diabetes Mellitus Type 2 Renal/ Medical History: Denies: Hx Peritoneal Dialysis Musculoskeltal Medical History: Reports Hx Arthritis - RA both hips and knees Psychiatric Medical History: Denies: Hx Depression Past Surgical History: Reports: Hx Section - 2, Hx Cholecystectomy, Hx Gynecologic Surgery - novosure 2010, Hx Orthopedic Surgery - Right knee arthroscopy, Hx Tubal Ligation. Denies: Hx Hysterectomy - Immunizations Immunizations up to date: Yes Hx Diphtheria, Pertussis, Tetanus Vaccination: Yes Physical Exam - Vital signs Vitals: Temp Pulse Resp BP Pulse Ox 97.8 F 95 24 H 142/79 H 99 01/29/17 14:56 01/29/17 14:56 01/29/17 14:56 01/29/17 14:56 01/29/17 14:56 Course - Vital Signs Vital signs: Temp Pulse Resp BP Pulse Ox 97.8 F 95 24 H 142/79 H 99 01/29/17 14:56 01/29/17 14:56 01/29/17 14:56 01/29/17 14:56 01/29/17 14:56
[2017-01-29] MEDS ORDERED: PROMETHAZINE HCL 25 MG TABLET PO ONE (15:51)
[2017-01-29 16:54] LABS: APPEARANCE,URINE CLOUDY; BILIRUBIN,URINE NEGATIVE (NEGATIVE); GLUCOSE, URINE NEGATIVE (NEGATIVE); KETONES,URINE NEGATIVE (NEGATIVE); LEUKOCYTE ESTERASE,URINE TRACE (NEGATIVE); NITRITE,URINE NEGATIVE (NEGATIVE); PROTEIN,URINE >=500 mg/dL (NEGATIVE); URINE SPECIFIC GRAVITY 1.025; UROBILINOGEN,URINE NEGATIVE mg/dL (<2.0)
[2017-01-29 17:57] LABS: ABSOLUTE EOSINOPHILS # (AUTO) 0.1 10^3/uL (0.0-0.6); ABSOLUTE LYMPHOCYTES (AUTO) 2.7 10^3/uL (0.5-4.7); ABSOLUTE MONOCYTES (AUTO) 0.4 10^3/uL (0.1-1.4); ABSOLUTE NEUT (AUTO) 8.3 10^3/uL (1.7-8.2); BASOPHILS % (AUTO) 0.4 % (0-2); EOSINOPHILS % (AUTO) 0.9 % (0-6); HEMATOCRIT 36.3 % (36.0-47.0); HEMOGLOBIN 11.1 g/dL (12.0-15.5); LYMPHOCYTES % (AUTO) 23.7 % (13-45); MEAN CORPUSCULAR HEMOGLOBIN 21.6 pg (27.0-33.4); MEAN CORPUSCULAR HGB CONC 30.7 g/dL (32.0-36.0); MEAN CORPUSCULAR VOLUME 71 fl (80-97); MONOCYTES % (AUTO) 3.1 % (3-13); RED BLOOD COUNT 5.15 10^6/uL (3.72-5.28); RED CELL DISTRIBUTION WIDTH 14.1 % (11.5-14.0); SEGMENTED NEUTROPHILS % (AUTO) 71.9 % (42-78); WHITE BLOOD COUNT 11.5 10^3/uL (4.0-10.5)
[2017-01-29 18:04] LABS: ALANINE AMINOTRANSFERASE 36 U/L (9-52); ALKALINE PHOSPHATASE 107 U/L (38-126); ANION GAP 13 (5-19); ASPARTATE AMINO TRANSFERASE 31 U/L (14-36); BILIRUBIN,DIRECT 0.4 mg/dL (0.0-0.4); BILIRUBIN,TOTAL 0.7 mg/dL (0.2-1.3); BLOOD UREA NITROGEN 13 mg/dL (7-20); CALCIUM 9.5 mg/dL (8.4-10.2); CARBON DIOXIDE 24 mmol/L (22-30); CHLORIDE 102 mmol/L (98-107); CREATININE RESULT 0.97 mg/dL (0.52-1.25); GLUCOSE 121 mg/dL (75-110); LIPASE 148.9 U/L (23-300); POTASSIUM 4.3 mmol/L (3.6-5.0); SODIUM 138.7 mmol/L (137-145); TOTAL PROTEIN 7.1 g/dL (6.3-8.2)
--- NOTE | 2017-01-29 18:24 | ER Document Report ---
ED GI/ - General Chief Complaint: Abdominal Pain Stated Complaint: UPPER ABDOMINAL PAIN/VOMITING Time Seen by Provider: 01/29/17 15:42 Mode of Arrival: Ambulatory Information source: Patient TRAVEL OUTSIDE OF THE [place] IN LAST 30 DAYS: No - HPI Patient complains to provider of: Abdominal pain, Vomiting Onset: This afternoon Timing/Duration: Sudden Quality of pain: Achy, Pressure Severity at maximum: Moderate Severity in ED: Moderate Pain Level: 3 Location: Epigastric Associated symptoms: Nausea, Vomiting Exacerbated by: Denies Relieved by: Denies Notes: 01/29/17 19:30 Patient is a 42-year-old female presenting to the emergency room complaining of pain in the upper abdomen with nausea and vomiting 4 episodes, she reports having normal bowel movements, passing gas regularly, no fever, no dysuria, no vaginal complaints, she was recently evaluated by her primary care provider and diagnosed with a ventral hernia - Related Data Allergies/Adverse Reactions: codeine [Codeine] Allergy (Intermediate, Verified 01/29/17 14:55) Hives hydrocodone bitartrate [From Vicodin] Allergy (Intermediate, Verified 01/29/17 14:55) Dyspnea hydromorphone HCl [From Dilaudid] Allergy (Intermediate, Verified 01/29/17 14:55 ) Hives morphine [Morphine] Allergy (Intermediate, Verified 01/29/17 14:55) Hives oxycodone HCl [From Percocet] Allergy (Intermediate, Verified 01/29/17 14:55) Hives Shellfish * [Shellfish] Allergy (Unknown, Verified 01/29/17 14:55) Past Medical History - General Information source: Patient - Social History Smoking Status: Never Smoker Chew tobacco use (# tins/day): No Frequency of alcohol use: None Drug Abuse: None Family History: Reviewed & Not Pertinent - Past Medical History Cardiac Medical History: Reports: Hx Hypertension Denies: Hx Coronary Artery Disease, Hx Heart Attack Pulmonary Medical History: Reports: Hx Asthma - seasonal Denies: Hx Bronchitis, Hx COPD, Hx Pneumonia Neurological Medical History: Reports: Hx Migraine. Denies: Hx Cerebrovascular Accident, Hx Seizures Endocrine Medical History: Reports: Hx Diabetes Mellitus Type 1, Hx Diabetes Mellitus Type 2 Renal/ Medical History: Denies: Hx Peritoneal Dialysis Musculoskeltal Medical History: Reports Hx Arthritis - RA both hips and knees Psychiatric Medical History: Denies: Hx Depression Past Surgical History: Reports: Hx Section - 2, Hx Cholecystectomy, Hx Gynecologic Surgery - novosure 2010, Hx Orthopedic Surgery - Right knee arthroscopy, Hx Tubal Ligation. Denies: Hx Hysterectomy - Immunizations Immunizations up to date: Yes Hx Diphtheria, Pertussis, Tetanus Vaccination: Yes Hx Pneumococcal Vaccination: 03/01/12 Review of Systems - Review of Systems Constitutional: No symptoms reported EENT: No symptoms reported Cardiovascular: No symptoms reported Respiratory: No symptoms reported Gastrointestinal: See HPI Genitourinary: No symptoms reported Female Genitourinary: No symptoms reported Musculoskeletal: No symptoms reported Skin: No symptoms reported Hematologic/Lymphatic: No symptoms reported Neurological/Psychological: No symptoms reported -: Yes All other systems reviewed and negative Physical Exam - Vital signs Vitals: Temp Pulse Resp BP Pulse Ox 97.8 F 95 24 H 142/79 H 99 01/29/17 14:56 01/29/17 14:56 01/29/17 14:56 01/29/17 14:56 01/29/17 14:56 Interpretation: Normal - General General appearance: Appears well, Alert - HEENT Head: Normocephalic, Atraumatic Eyes: Normal Pupils: PERRL - Respiratory Respiratory status: No respiratory distress Chest status: Nontender Breath sounds: Normal Chest palpation: Normal - Cardiovascular Rhythm: Regular Heart sounds: Normal auscultation Murmur: No - Abdominal Inspection: Other - Large ventral hernia evident when patient attempts to do a sit up, easily reduces when patient relaxes Distension: No distension Bowel sounds: Normal Tenderness: Nontender Organomegaly: No organomegaly - Back Back: Normal, Nontender - Extremities General upper extremity: Normal inspection, Nontender, Normal color, Normal ROM , Normal temperature General lower extremity: Normal inspection, Nontender, Normal color, Normal ROM , Normal temperature, Normal weight bearing. No: Fabian's sign - Neurological Neuro grossly intact: Yes Cognition: Normal Orientation: AAOx4 Fito Coma Scale Eye Opening: Spontaneous Fito Coma Scale Verbal: Oriented Marion Coma Scale Motor: Obeys Commands Fito Coma Scale Total: 15 Speech: Normal Motor strength normal: LUE, RUE, LLE, RLE Sensory: Normal - Psychological Associated symptoms: Normal affect, Normal mood - Skin Skin Temperature: Warm Skin Moisture: Dry Skin Color: Normal Course - Re-evaluation Re-evalutation: 01/29/17 19:31 Physical exam findings unremarkable except for easily reducible ventral hernia, labs with mild leukocytosis, however otherwise unremarkable, patient was discharged with pain medication as well as nausea medication and instructions to follow-up, she reports that she has an outpatient appointment with a surgeon in [place] on the - Vital Signs Vital signs: Temp Pulse Resp BP Pulse Ox 97.8 F 85 16 167/88 H 100 01/29/17 14:56 01/29/17 19:03 01/29/17 19:03 01/29/17 19:03 01/29/17 19:03 - Laboratory Result Diagrams: 01/29/17 17:30 01/29/17 17:30 Laboratory results interpreted by me: 01/29/17 01/29/17 01/29/17 16:20 17:30 17:30 WBC 11.5 H Hgb 11.1 L MCV 71 L MCH 21.6 L MCHC 30.7 L RDW 14.1 H Absolute Neutrophils 8.3 H Glucose 121 H Urine Protein >=500 H Urine Blood SMALL H Ur Leukocyte Esterase TRACE H Discharge - Discharge Clinical Impression: Abdominal pain Qualifiers: Abdominal location: epigastric Qualified Code(s): R10.13 - Epigastric pain Ventral hernia Qualifiers: Obstruction and gangrene presence: without obstruction or gangrene Qualified Code(s): K43.9 - Ventral hernia without obstruction or gangrene Condition: Stable Disposition: HOME, SELF-CARE Instructions: Abdominal Pain ([facility]) Additional Instructions: Follow up with your primary care provider in one to 2 days. Follow-up with your surgeon as scheduled. Return to the emergency room immediately if symptoms worsen or any additional concerns. Prescriptions: Dicyclomine HCl [Bentyl 20 mg Tablet] 20 mg PO QID #120 tablet Ondansetron [Zofran Odt 4 mg Tablet] 1 - 2 tab PO Q4H #10 tab.rapdis Oxycodone HCl/Acetaminophen [Percocet 5-325 mg Tablet] 1 - 2 tab PO ASDIR PRN # 15 tablet PRN Reason: Forms: Return to Work, Work Clearance Referrals: CAROLYN CHANG MD [Primary Care Provider] - Follow up as needed
[2017-01-29 19:04] VITALS: BP 167/88
== END 2017-01-29 19:06 | disposition home or self-care (01) ==
LOC: ER 14:49
DX: K43.9 Ventral hernia without obstruction or gangrene (principal); R10.13 Epigastric pain; R10.10 Upper abdominal pain, unspecified; R11.2 Nausea with vomiting, unspecified
CPT/HCPCS: 99284; 96360; 36415; 83690; 85025; 80053; 81001; J7030

== ENCOUNTER 2018-05-29 14:52 | Emergency (ER) | payer SELFPAY ==
[2018-05-29 15:29] VITALS: BP 151/79
[2018-05-29] MEDS ORDERED: TETRACAINE HCL 0.5% OPH SOLN 4 ML OU ONE (16:16)
--- NOTE | 2018-05-29 16:20 | ER Document Report ---
ED General - General Chief Complaint: Blurred Vision Stated Complaint: BLURRED VISION Time Seen by Provider: 05/29/18 16:04 Notes: Patient is a 43-year-old female that presents to the emergency department for chief complaint of blurred vision. Patient states she has had blurred vision per approximate 1 month specifically in her right eye, and seem to be worse lately. She denies having any pain associated with this or redness in her eye. Denies any recent fevers, chills, night sweats, headaches, lightheadedness, numbness, tingling or weakness in any extremity. She states she is seeing floaters in her right eye in particular. She describes them is linear in nature, and they come and go. Her vision is severely diminished particular with reading in the right eye compared to the left eye. Which she states is clear she does have diabetes mellitus, that is not controlled well at this time, she has not follow-up with her primary care physician in over a year, she currently does not have insurance. She states she is on mixed 7030 insulin, as well as a sulfonylurea, and metformin. She has not seen an eye doctor in a very long time, she does not wear glasses or contacts. Past Medical History: Hypertension, diabetes mellitus Past Surgical History: Tubal ligation, cholecystectomy, Social History: Denies tobacco, alcohol or drug use. Family History: Reviewed and noncontributory for presenting illness Allergies: Reviewed, see documented allergy list. REVIEW OF SYSTEMS: Other than noted above, the 12 point review of systems was reviewed with the patient and were negative, all pertinent findings are included in the HPI. PHYSICAL EXAMINATION: Vital signs reviewed, nursing noted reviewed. GENERAL: Well-appearing, well-nourished and in no acute distress. HEAD: Atraumatic, normocephalic. EYES: Eyes appear normal, sclera anicteric, conjunctiva are normal. Limited nondilated funduscopic exam demonstrates increased vasculature in the right eye compared to the left. Bilateral intraocular pressures were obtained, and were 18mmHg bilaterally. No conjunctival injection noted. No pain with extraocular eye movement, PERRLA. ENT: Moist mucous membranes. NECK: Normal range of motion, supple without lymphadenopathy LUNGS: Breath sounds clear to auscultation bilaterally and equal. No wheezes rales or rhonchi. HEART: Regular rate and rhythm without murmurs EXTREMITIES: Nontender, good range of motion, no pitting or edema. NEUROLOGICAL: No focal neurological deficits. Moves all extremities spontaneously Motor and sensory grossly intact on exam. PSYCH: Normal mood, normal affect. SKIN: Warm, Dry, normal turgor, no rashes or lesions noted on exposed skin TRAVEL OUTSIDE OF THE [place] IN LAST 30 DAYS: No - Related Data Allergies/Adverse Reactions: codeine [Codeine] Allergy (Intermediate, Verified 05/29/18 15:10) Hives hydrocodone bitartrate [From Vicodin] Allergy (Intermediate, Verified 05/29/18 15:10) Dyspnea hydromorphone HCl [From Dilaudid] Allergy (Intermediate, Verified 05/29/18 15:10) Hives morphine [Morphine] Allergy (Intermediate, Verified 05/29/18 15:10) Hives oxycodone HCl [From Percocet] Allergy (Intermediate, Verified 05/29/18 15:10) Hives Shellfish * [Shellfish] Allergy (Unknown, Verified 05/29/18 15:10) Past Medical History - Social History Smoking Status: Never Smoker Chew tobacco use (# tins/day): No Frequency of alcohol use: None Drug Abuse: None Family History: Reviewed & Not Pertinent Patient has suicidal ideation: No Patient has homicidal ideation: No - Past Medical History Cardiac Medical History: Reports: Hx Hypertension Denies: Hx Coronary Artery Disease, Hx Heart Attack Pulmonary Medical History: Reports: Hx Asthma - seasonal Denies: Hx Bronchitis, Hx COPD, Hx Pneumonia Neurological Medical History: Reports: Hx Migraine. Denies: Hx Cerebrovascular Accident, Hx Seizures Endocrine Medical History: Reports: Hx Diabetes Mellitus Type 1, Hx Diabetes Mellitus Type 2 Renal/ Medical History: Denies: Hx Peritoneal Dialysis Musculoskeletal Medical History: Reports Hx Arthritis - RA both hips and knees Psychiatric Medical History: Denies: Hx Depression Past Surgical History: Reports: Hx Section - 2, Hx Cholecystectomy, Hx Gynecologic Surgery - novosure 2010, Hx Orthopedic Surgery - Right knee arthroscopy, Hx Tubal Ligation. Denies: Hx Hysterectomy - Immunizations Immunizations up to date: Yes Hx Diphtheria, Pertussis, Tetanus Vaccination: Yes Hx Pneumococcal Vaccination: 03/01/12 Physical Exam - Vital signs Vitals: Temp Pulse Resp BP Pulse Ox 97.5 F 88 17 151/79 H 96 05/29/18 15:28 05/29/18 15:28 05/29/18 15:28 05/29/18 15:28 05/29/18 15:28 Course - Re-evaluation Re-evalutation: Patient seen and examined vital signs reviewed. Patient was evaluated as appropriate for the patient's presenting symptoms and complaint, with consideration of any critical or life threatening conditions that may be associated with their obtained history and exam as noted above. Intraocular pressures are equal bilaterally, patient had severely diminished visual acuity on the right compared to the left. She was only able to count fingers, on the right. Bedside ocular ultrasound demonstrated what appeared to be partial retinal detachment versus floaters, normal ultrasound noted on the left eye. Evaluation was most consistent with suspected severe right sided diabetic retinopathy, with possible retinal detachment, however the patient did not have flashes or complete loss of vision, she was able to count fingers, therefore suspected advanced diabetic retinopathy is high in the differential. Patient has uncontrolled diabetes, has been experiencing peripheral neuropathy as well in her lower extremities. I advised her to follow-up with a general road foreman, she was also given a retina specialist to follow-up with, I also advised her to follow-up with primary care physician, to better control her diabetes. Patient was agreeable to this plan of care. Plan of care was discussed with the patient at this point, after careful consideration I feel that that patient can be discharged from the emergency department, the patient was educated treatments and reasons to return to the emergency department based on their presumed diagnosis as noted above, they were advised to followup with a primary care physician in 2-3 days. Patient was agreeable to plan of care. *Note is created using voice recognition software and may contain spelling, syntax or grammatical errors. - Vital Signs Vital signs: Temp Pulse Resp BP Pulse Ox 97.5 F 88 17 151/79 H 96 05/29/18 15:28 05/29/18 15:28 05/29/18 15:28 05/29/18 15:28 05/29/18 15:28 Procedures - Ultrasound/Bedside Ultrasound/Bedside Ultrasound: Other Notes: Bedside ocular ultrasound: Indication decreased visual acuity in the right eye. Patient's eye was visualized using a linear probe, lens was identified, as well as optic nerve, there appeared to be hyperechoic material versus partial retinal detachment within the vitreous. Lens appeared normal, optic nerve appeared normal. Images placed in the chart, the left eye was visualized as w ell, and appeared normal. Discharge - Discharge Clinical Impression: Vision changes Uncontrolled diabetes mellitus Qualifiers: Diabetes mellitus type: type 2 Glycemic state: with hyperglycemia Qualified Code(s): E11.65 - Type 2 diabetes mellitus with hyperglycemia Condition: Stable Disposition: HOME, SELF-CARE Additional Instructions: Please return to the emergency department if you have any worsening, or concern of your symptoms. Please return to the emergency department if you develop chest pain, difficulty breathing, severe abdominal pain, or ongoing vomiting. Please follow-up with your primary care physician in 2-3 days and any other recommended physicians. If prescribed, take all medications as directed. If you have any questions or concerns do not hesitate to return the emergency department for evaluation. Please follow-up with ophthalmology, to have your right eye visualized in detail. Please follow-up with a new primary care physician, to have your diabetes managed, you may need changes in your medications to better control your diabetes. If you have complete loss of your vision, or if her vision turns black, do not hesitate to return immediately to the emergency department. If you have pain with your blurred vision, he should also return to the emergency department for this. Referrals: CAROLYN CHANG MD [ACTIVE STAFF] - Follow up in 3-5 days JOSE CASPER MD [ACTIVE STAFF] - Follow up in 3-5 days (general ophthalmology ) OSCAR DILLON MD [CONSULTING STAFF] - Follow up in 3-5 days (retina specialist) [facility] [Provider Group] - Follow up in 3-5 days [facility] [Provider Group] - Follow up in 3-5 days
== END 2018-05-29 16:50 | disposition home or self-care (01) ==
LOC: ER 14:52
DX: H53.8 Other visual disturbances (principal); E11.65 Type 2 diabetes mellitus with hyperglycemia; H43.391 Other vitreous opacities, right eye; I10 Essential (primary) hypertension; J45.909 Unspecified asthma, uncomplicated
CPT/HCPCS: 99283; J3490